=== PATIENT | female | born 1950 | race Caucasian/White ===

== ENCOUNTER 2018-09-25 10:45 | Emergency (ER) | payer SELFPAY ==
[~2018-09-25] VITALS: Ht 152.4 cm; Wt 78.0 kg
[2018-09-25] MEDS ORDERED: KETOROLAC 30MG/ML VIAL IV STA (14:51)
[2018-09-25] MEDS ORDERED: SODIUM CHLORIDE 0.9% 1,000 ML IV ONE (14:51)
[2018-09-25] MEDS ORDERED: METOCLOPRAMIDE HCL 10MG/2ML VIAL IV ONE (15:00)
[2018-09-25 17:03] VITALS: BP 118/63
== END 2018-09-25 17:09 | disposition home or self-care (01) ==
LOC: ER 12:28
DX: R51 Headache (principal); M79.18 Myalgia, other site; I10 Essential (primary) hypertension; Z88.1 Allergy status to other antibiotic agents; Z90.49 Acquired absence of other specified parts of digestive tract; Z90.710 Acquired absence of both cervix and uterus; Z96.659 Presence of unspecified artificial knee joint
CPT/HCPCS: 96374; 96375; 99283; J1885; J2765; J7030